=== PATIENT | female | born 1970 | race Hispanic/Latino ===

== ENCOUNTER 2021-01-24 07:41 | Outpatient (CLI) | payer BC | END 2021-01-24 07:42 | disposition home or self-care (01) | LOC: BICULT 07:41 | PROVIDERS: ATTEND Nurse Practitioner Women's Health | DX: N93.9 Abnormal uterine and vaginal bleeding, unspecified (principal); N85.2 Hypertrophy of uterus | CPT/HCPCS: 76856; 93976 ==